=== PATIENT | male | born 1965 | race Caucasian/White ===

== ENCOUNTER 2023-12-16 04:45 | Emergency (ER) | payer BC ==
[2023-12-16 05:16] VITALS: O2SAT 98
--- NOTE | 2023-12-16 05:46 | ED Physician Documentation ---
PD HPI LOWER EXT INJURY - Stated complaint Stated Complaint: R LEG PX - Chief complaint Chief Complaint: Ext Problem - History obtained from History obtained from: Patient - History of Present Illness PD HPI LOW EXT INJURY LOCATION: Right, Lower leg Type of injury: Other (had gout and now has swelling/tenderness to calf) Where injury occurred: Home Timing - onset: Yesterday Timing - duration: Days (2) Timing - details: Gradual onset, Still present Improved by: Rest Worsened by: Moving, Palpating Associated symptoms: Swelling, Discolored. No: Weakness, Numbness, Tingling Contributing factors: No: Anticoagulated Similar symptoms before: Has not had sx before Recently seen: Not recently seen - Additional information Additional information: David moore is a 58-year-old male with a history of gout who is on allopurinol. He took some colchicine for flare of gout and several days later he has developed a cordlike mass in the right groin area and swelling and pain to the posterior calf on the right side. He is concerned about a DVT Review of Systems Constitutional: reports: Fever, Chills Ears: denies: Ear pain Nose: denies: Congestion Throat: denies: Sore throat Respiratory: denies: Cough GI: denies: Vomiting, Diarrhea PD PAST MEDICAL HISTORY - Past Medical History Past Medical History: Yes Cardiovascular: None Respiratory: None Endocrine/Autoimmune: None GI: GERD : None HEENT: None Psych: None Musculoskeletal: Gout Derm: None - Past Surgical History Past Surgical History: Yes General: Appendectomy - Present Medications Home Medications: Ambulatory Orders Medication Instructions Recorded Confirmed Amox/Clav 875/125 [Augmentin] 1 each PO Q12H #20 tablet 12/16/23 Colchicine 1 tab PO DAILY 12/16/23 12/16/23 - Allergies Allergies/Adverse Reactions: Allergies Allergy/AdvReac Type Severity Reaction Status Date / Time Penicillins Allergy Rash Verified 12/16/23 05:14 - Social History Does the pt smoke?: No Smoking Status: Never smoker Does the pt drink ETOH?: Yes Does the pt have substance abuse?: No - Immunizations Immunizations are current?: Yes - POLST Patient has POLST: No PD ED PE NORMAL - Vitals Vital signs reviewed: Yes (hypertensive ) - General General: Alert and oriented X 3, No acute distress, Well developed/nourished - HEENT HEENT: Atraumatic, PERRL, EOMI - Respiratory Respiratory: No respiratory distress - Derm Derm: Normal color, Warm and dry - Extremities Extremities: No deformity, Other (There is a palpable cord in the inguinal area that is mildly tender. There is calf tenderness and erythema with lymphangitic streaking present on the upper portion of the calf. The foot does not appear to be involved.) - Neuro Neuro: Alert and oriented X 3, manager house 2-12 intact, No motor deficit, No sensory deficit, Normal speech Eye Opening: Spontaneous Motor: Obeys Commands Verbal: Oriented GCS Score: 15 - Psych Psych: Normal mood, Normal affect Results - Vitals Vitals: Vital Signs - 24 hr 12/16/23 12/16/23 05:05 05:44 Temperature 37.1 C Heart Rate 85 80 Respiratory 16 Rate Blood Pressure 133/82 H O2 Saturation 98 Oxygen O2 Source Room air - Rads (name of study) duplex veins R Relevant Findings:: Prelim report reviewed (No DVT +lymph node in inguinal area), EMP independent interpretation of test, See rad report PD Medical Decision Making - ED course Complexity details: reviewed old records, reviewed results, re-evaluated patient, considered differential, d/w patient ED course: 58-year-old David Bradley presents with Pain and swelling to the right lower extremity with some erythema and he is concerned about DVT. We did do duplex ultrasound without evidence of DVT and there is presence of a large lymph node in the inguinal area and evidence of cellulitis to the posterior calf. Patient is given a dose of Rocephin IM and we will place him on some Augmentin. Departure - Departure Disposition: 01 Home, Self Care Clinical Impression: Cellulitis Qualifiers: Site of cellulitis: extremity Site of cellulitis of extremity: lower extremity Laterality: right Qualified Code(s): L03.115 - Cellulitis of right lower limb Condition: Stable Instructions: ED Infec Skin Cellulitis Follow-Up: JITENDRA GLASS MD [Primary Care Provider] - Prescriptions: Amox/Clav 875/125 [Augmentin] 1 each PO Q12H #20 tablet Forms: PCP List
[2023-12-16] MEDS: cefTRIAXone 1 GM VIAL IM STA (08:34)
[2023-12-16] MEDS: LIDOCAINE 1% 2 ML VIAL MC ONE (08:34)
[2023-12-16 08:47] VITALS: BP 118/78
--- NOTE | 2023-12-16 08:59 | Ultrasound Report ---
PROCEDURE: Duplex Ext Veins Right INDICATIONS: swelling palpable cord TECHNIQUE: Real-time imaging, as well as color and pulse Doppler interrogation, were performed of the lower extr emity deep veins from the inguinal ligament to the popliteal fossa. Attempted visualization of the ca lf veins was performed. COMPARISON: None. FINDINGS: The deep veins are normally compressible, and free of intraluminal thrombus. Color and pu lse Doppler demonstrate normal phasic intraluminal flow. There is normal augmentation response to di stal compression maneuver. Right groin prominent lymph nodes are seen. Edema is seen in the posterior calf. No drainable fluid c ollection. IMPRESSION: No deep venous thrombosis of the visualized lower extremity. Reviewed by: Steven Schulte MD on 12/16/2023 8:58 AM PDT Approved by: Steven Schulte MD on 12/16/2023 8:58 AM PDT Station ID: [id number]
[2023-12-16] MEDS ORDERED: LIDOCAINE 1% 2 ML VIAL MC ONE (09:00)
== END 2023-12-16 08:44 | disposition home or self-care (01) ==
LOC: ED 04:45
DX: L03.115 Cellulitis of right lower limb (principal); R59.0 Localized enlarged lymph nodes
CPT/HCPCS: 96372; 99284